=== PATIENT | male | born 1975 | race Caucasian/White ===

== ENCOUNTER 2022-09-25 11:23 | Emergency (ER) | payer BC ==
[~2022-09-25] VITALS: Ht 185.4 cm; Wt 79.4 kg
[2022-09-25] MEDS ORDERED: TOBRADEX 0.1%-0.5 ML OPH (13:10)
== END 2022-09-25 13:24 | disposition home or self-care (01) ==
LOC: ED 11:23
DX: H04.551 Acquired stenosis of right nasolacrimal duct (principal)